=== PATIENT | male | born 1945 | race Caucasian/White ===

== ENCOUNTER 2025-06-17 23:10 | Emergency (ER) | payer MEDICARE, BC, OTHER, SELFPAY ==
[2025-06-17 23:14] VITALS: BP 191/77; PULSE 104; RESP 18; TEMP 36.7; O2SAT 98; BMI 32.1
--- NOTE | 2025-06-17 23:55 | ED.GENADULT ---
HPI - General Adult General Time Seen by Provider: 23:55 Date Seen: 06/17/25 Chief complaint: Constipation Stated complaint: constipation Time Seen by Provider: 06/17/25 23:55 Source: patient Mode of arrival: ambulatory Limitations: no limitations History of Present Illness HPI narrative: 80-year-old male who comes in today with constipation. He says that he feels stool in the rectum but was unable to pass it. Did not enema at home with minimal improvement. No abdominal pain, no nausea vomiting, is not had problems like this before. Has not noticed recent change in the caliber of his stools. Related Data Previous Rx's ?Medication ?Instructions ?Recorded docusate sodium 100 mg capsule 100 mg PO BID #14 caps 06/18/25 (Colace) Allergies Allergy/AdvReac Type Severity Reaction Status Date / Time No Known Drug Allergies Allergy Verified 06/17/25 23:17 PFS PFS Social History Non-prescribed substance use: denies use Exam Narrative: Exam Narrative: General: Well-developed and well-nourished, no acute distress Head: Atraumatic and normocephalic Eyes: Pupils are equal reactive, extraocular motions intact, conjunctiva clear ENT: External nose and ears are normal, posterior pharynx without erythema or exudate Neck: No midline cervical tenderness, full spontaneous range of motion the neck, trachea midline, no adenopathy Heart: Regular rate and rhythm no murmurs or thrills Lungs: Clear to auscultation bilaterally without wheezes or crackles Abdomen: Soft, nontender, nondistended with active bowel sounds Musculoskeletal: No tenderness, deformity, or edema Neurologic: Awake, alert, and oriented x3, no gross focal neurologic deficits, cranial nerves intact as tested Psych: Mood and affect are appropriate Skin: No rashes Rectal: Normal rectal tone, moderately soft stool in the rectum Const: Vital Signs, click to edit/add: Vital Signs - 24 hr 06/17/25 23:14 Temperature 98.0 F Pulse Rate [Pulse Oximeter] 104 H Respiratory Rate 18 Blood Pressure [Ri ght Upper Arm] 191/77 H Pulse Oximetry 98 Oxygen Delivery Me thod Room Air Course Course ED Course: Patient seen and examined, presents today with concern for constipation. His last stools couple days ago, he has sensation of stool in the rectum but is unable to pass it. He tried of abdomen home. On exam here, patient's tachycardia brothers with that was stable, appears comfortable. No abdominal tenderness on exam and denies abdominal pain, nausea, vomiting. There is moderately stop stool in the rectum. Enemeez and is milk of magnesia are ordered, consider soapsuds enema if there are no results with these interventions. Reevaluation(s) Time of Reevaluation #1: 01:26 Reevaluation #1: No results so far with Enemeez and milk of Mag. Magnesium citrate and soapsuds enema ordered. I did order Relistor but that is not available at [facility]. Time of Reevaluation #2: 01:53 Reevaluation #2: Patient had a large bowel movement prior to and may be given, stable for discharge. Vital Signs Vital signs: Initial Vital Signs Temperature 98.0 F 06/17/25 23:14 Temperature Source Temporal Artery Scan 06/17/25 23:14 Pulse Rate 104 H 06/17/25 23:14 Respiratory Rate 18 06/17/25 23:14 Blood Pressure 191/77 H 06/17/25 23:14 Blood Pressure Mean 115 H 06/17/25 23:14 Blood Pressure Position Sitting 06/17/25 23:14 Pulse Oximetry 98 06/17/25 23:14 Oxygen Delivery Method Room Air 06/17/25 23:14 Vital Signs Temperature 98.0 F 06/17/25 23:14 Pulse Rate 104 H 06/17/25 23:14 Respiratory Rate 18 06/17/25 23:14 Blood Pressure 191/77 H 06/17/25 23:14 Pulse Oximetry 98 06/17/25 23:14 Oxygen Delivery Method Room Air 06/17/25 23:14 Temperature 98.0 F 06/17/25 23:14 Pulse Rate 104 H 06/17/25 23:14 Respiratory Rate 18 06/17/25 23:14 Blood Pressure 191/77 H 06/17/25 23:14 Pulse Oximetry 98 06/17/25 23:14 Oxygen Delivery Method Room Air 06/17/25 23:14 Medications Administered Medications: Discontinued Medications Generic Name Dose Route Start Last Admin Trade Name Freq PRN Reason Stop Dose Admin Docusate Sodium/Benzocaine 5 ml 06/17/25 23:56 06/18/25 00:16 Docusate Sodium/Benzocaine 5 Ml Enema UT 06/17/25 23:57 5 ml ONCE ONE Administration Lidocaine HCl 6 ml 06/17/25 23:56 06/18/25 00:16 Lidocaine Hcl 2 % Jelly (Top) Sterile TOPICAL 06/17/25 23:57 6 ml ONCE ONE Administration Magnesium Citrate 300 ml 06/18/25 00:32 06/18/25 01:00 Magnesium Citrate 300 Ml Solution PO 06/18/25 00:33 300 ml ONCE ONE Administration Magnesium Hydroxide 30 ml 06/17/25 23:55 06/18/25 00:20 Magnesium Hydroxide 30 Ml Oral.Susp PO 06/17/25 23:56 30 ml ONCE ONE Administration Methylnaltrexone Prosperity 12 mg 06/18/25 00:46 06/18/25 01:37 Methylnaltrexone Prosperity 12 Mg/0.6 Ml Vial SUBCUT 06/18/25 00:47 Not Given ONCE ONE Discharge Plan Discharge Clinical Impression: Fecal impaction in rectum Patient Disposition: Home, Self-Care Condition: Stable Instructions: Fecal Impaction (ED) Additional Instructions: Make sure to drink plenty of fluids Start stool softener twice a day. If you develop diarrhea or having too many loose stools, he may decrease to once a day Follow-up with your primary care provider Activity Level: Activity as Tolerated Discharge Diet: Regular Prescriptions: New docusate sodium [Colace] 100 mg capsule 100 mg PO BID Qty: 14 0RF Stand Alone Forms: MyHealth Info Instructions
[2025-06-18] MEDS: DOCUSATE SODIUM/BENZOCAINE 5 ML ENEMA PR (00:16)
[2025-06-18] MEDS: lidocaine HCL 2 % JELLY (TOP) STERILE 6 ML TOPICAL (00:16)
[2025-06-18] MEDS: MAGNESIUM HYDROXIDE 30 ML ORAL.SUSP PO (00:20)
[2025-06-18] MEDS: MAGNESIUM CITRATE 300 ML SOLUTION PO (01:00)
== END 2025-06-18 02:47 | disposition home or self-care (01) ==
LOC: ED 06-18 01:01
PROVIDERS: Emergency Provider Family Medicine
DX: K56.41 Fecal impaction (principal)
CPT/HCPCS: 99283; 99284; A9270